=== PATIENT | female | born 1950 | race Caucasian/White ===

== ENCOUNTER → 2023-10-14 12:45 | Outpatient (REF) | payer MEDICARE, BC, SELFPAY | LOC: RAD 12:45 | PROVIDERS: ATTENDING PHYSICIAN Emergency Medicine; FAMILY PHYSICIAN Family Medicine | DX: S20.219A Contusion of unspecified front wall of thorax, initial encounter (principal); S43.401A Unspecified sprain of right shoulder joint, initial encounter | CPT/HCPCS: 71046; 71120; 73030 ==

== ENCOUNTER → 2024-02-25 17:50 | Outpatient (REF) | payer MEDICARE, BC, SELFPAY | LOC: MRI 3T 17:50 | PROVIDERS: ATTENDING PHYSICIAN Surgery Surgical Oncology; FAMILY PHYSICIAN Family Medicine | DX: R92.2 Inconclusive mammogram (principal); Z85.3 Personal history of malignant neoplasm of breast | CPT/HCPCS: 77049; A9585 ==

== ENCOUNTER 2024-08-14 15:39 | Inpatient (IN) | payer MEDICARE, BC, SELFPAY ==
[2024-08-14] VITALS (7 sets, daily range): BP systolic 133–159; BP diastolic 70–86; BMI 24.3
[2024-08-14 11:14] LABS: % Basophils 0.7 % (0-2); % Eosinophils 0.9 % (0-6); % Immature Granulocytes 0.2 % (0-0.5); % Lymphocytes 20.5 % (20.5-51.1); % Monocytes 13.2 % (1.7-9.3); % Neutrophils 64.5 % (42.2-75.2); Absolute Basophils 0.1 10^3/uL (0-0.2); Absolute Eosinophils 0.1 10^3/uL (0-0.7); Absolute Lymphocytes 1.7 10^3/uL (1.2-3.4); Absolute Monocytes 1.1 10^3/uL (0.1-0.6); Absolute Neutrophils 5.2 10^3/uL (1.4-6.5); Hematocrit 36.4 % (37.0-47.0); Hemoglobin 12.9 g/dL (12.0-16.0); Mean Corp Hgb Conc. 35.4 g/dL (33.0-37.0); Mean Corpuscular Hgb 31.5 pg (27.0-31.0); Nucleated Red Blood Cells % 0 %; Platelet Count 263 10^3/uL (130-400); Red Blood Cell Count 4.09 10^6/uL (4.20-5.40); Red Cell Dist. Width 12.2 % (11.5-14.5); White Blood Cell Count 8.1 10^3/uL (4.8-10.8)
[2024-08-14 11:47] LABS: Troponin I < 0.012 ng/ml
[2024-08-14 12:15] LABS: ALT (SGPT) 30 U/L (0-35); AST (SGOT) 40 U/L (14-36); Albumin 4.8 g/dl (3.5-5.0); Alkaline Phosphatase 93 U/L (38-126); Blood Urea Nitrogen 14 mg/dl (7-17); Calcium 9.6 mg/dl (8.4-10.2); Carbon Dioxide 27 mmol/L (22-30); Chloride 86 mmol/L (98-107); Glucose 105 mg/dl (70-99); Potassium 4.1 mmol/L (3.5-5.1); Sodium 125 mmol/L (135-145); Total Bilirubin 0.7 mg/dl (0.2-1.3); Total Protein 7.8 g/dl (6.3-8.2); eGFR > 60.00
--- NOTE | 2024-08-14 14:21 | ED.GENMED ---
History of Present Illness
General
Chief Complaint: Cardiac Symptoms
Source: patient
Exam Limitations: none
Time Seen by Provider: 08/14/24 14:09
Nursing documentation reviewed up to this point in time: agreed with
History of Present Illness
History of Present Illness:
73-year-old female presenting to the emergency department with concerns of feeling 'off' had some mild chest discomfort 2 days ago but none today some mild nausea. Also some palpitations. Denies any specific ongoing chest pain shortness of breath
fevers vomiting diarrhea.
Past History
Past History
ED Past Medical History: Other (Herniated disc in neck)
ED Past Surgical History: Tonsilectomy and Other (Breast biopsy,)
Social History
Tobacco: Non-smoker
Alcohol: Daily
Personal:
Living: with family
Employment: Employed
Review of Systems
Review of Systems
Allergies reviewed?: Yes
All Other Systems: ROS reviewed and negative except as documented in HPI and ROS
Phy Exam
Physical Exam
Physical Exam:
GENERAL: Alert , in no apparent distress
EYE: pupils equal and reactive
NECK: Supple, no significant adenopathy.
ENT: o/p clr, mmm.
CARDIAC: Regular rate and rhythm .
LUNGS: Clear breath sounds bilaterally, no acute respiratory distress, no wheezes/rales/rhonchi
ABDOMEN: Soft, without focal tenderness, no r/g, no cvat
NEUROLOGICAL: Alert and oriented, no focal neuro deficits
SKIN: Warm and dry, skin intact.
MUSCULOSKELETAL: No edema, well perfused.
PSYCH: Normal and appropriate interaction.
Course
Orders/Labs/Results
Orders:
Orders
08/14/24 10:32
Electrocardiogram (*1) Urgent
Reason for Study: Chest Pain
EKG- Treatment ONCE
08/14/24 10:50
Complete Blood Count/With Diff Urgent
Comprehensive Metabolic Panel Urgent
Troponin I Urgent
08/14/24 14:09
Chest [CR Chest - 2 Views ] Urgent
Comment:
Reason For Exam: cp
08/14/24 14:35
Osmolality, Random Urine Urgent
Serum Osmolality Urgent
Urine Sodium Urgent
08/14/24 14:47
Urinalysis Reflex To Culture Urgent
Abnormal Lab Results
08/14/24
10:50
RBC 4.09 L 10^6/uL
(4.20-5.40)
Hct 36.4 L %
(37.0-47.0)
MCH 31.5 H pg
(27.0-31.0)
Absolute Monos (auto) 1.1 H 10^3/uL
(0.1-0.6)
Monocytes % 13.2 H %
(1.7-9.3)
Sodium 125 L mmol/L
(135-145)
Chloride 86 L mmol/L
(98-107)
Glucose 105 H mg/dl
(70-99)
AST 40 H U/L
(14-36)
08/14/24 10:50
08/14/24 10:50
Vital Signs
Initial and Last Documented VS:
Initial Vital Signs
Temp Pulse Resp BP Pulse Ox
97.9 F 89 18 136/80 97
08/14/24 10:36 08/14/24 10:36 08/14/24 10:36 08/14/24 10:36 08/14/24 10:36
Last Documented Vital Signs
Temp Pulse Resp BP Pulse Ox
97.9 F 83 16 133/83 99
08/14/24 10:36 08/14/24 14:20 08/14/24 14:20 08/14/24 14:20 08/14/24 14:20
MDM/Problems Addressed
MDM/Problems Addressed:
73-year-old female presenting to the emergency department today with concerns of feeling 'off' had some discomfort to her chest denies specific pain which occurred yesterday currently asymptomatic. Vital signs normal on arrival labs were obtained
that showed low sodium level 125. Patient generally well-appearing EKG without emergent findings troponin negative. Chest x-ray without emergent findings. Considering low level of sodium typically relatively high level in the 140s plan to admit
for fluid restriction and monitoring as well as potential consultation.
*Critical Care Note
Total Time (30-74mins, 75-104mins- exclusive of procedures): Not Applicable
ED Attending Note
-
Portions of this chart may have been created with voice recognition software.� Occasional wrong word or��sound alike� substitutions may have occurred due to the inherent limitations of voice recognition software.
Discharge Plan
Departure
Patient Disposition: Admit
Date of Disposition: 08/14/24
Time of Disposition: 14:48
Admit to: Med/Surg
Admit to doctor: Russ
Presentation/result/management discussed w/ accepting MD/DO: Hospitalist
Patient with high blood pressure during this ER visit?: No
Condition: Good
Covid-19: Not Applicable
Discharge Problem:
Acute hyponatremia
Instructions: Hyponatremia
Prescriptions:
No Action
simvastatin 20 MG tablet
20 mg PO DAILY
lorazepam 1 MG tablet
1 mg PO Q4HPRN PRN (Reason: Anxiety) Qty: 10 0RF
Referrals:
Lilliana Chilel DO [Family Provider] -
Interventions
Interventions:
*Risk Screen - Suicide Last Done: 08/14/24 14:21
*General Assessment Last Done: 08/14/24 14:20
*Neglect/Abuse Screening Last Done: 08/14/24 14:21
*ED COVID-19 Vaccine History Last Done: 08/14/24 14:20
ED- Pulmonary Assessment Last Done: 08/14/24 14:20
ED- Cardiac Assessment Last Done: 08/14/24 14:20
Discharge Date and Time
Print Language: KINYARWANDA
--- NOTE | 2024-08-14 15:00 | HPS.HSE ---
Family Physician
-
Family Physician: Lilliana Chilel
Chief Complaint
-
'feeling off'
History of Present Illness
Ms. Rona Gonzalez is a 73 yo woman with hx HLD, breast CA (2013) presents to the ER complaining of 'feeling off'
Patient states she had right shoulder pain 2 days ago that has now resolved. This morning she did yoga and felt fine but then 'felt off' and came here. When asked if she felt dizzy she states no. She denies fatigue. She denies left-sided chest
pain. She reports a nervous feeling, maybe palpitations. Over the past two days she has had intermittent nausea, no vomiting. No fevers/chills. No cough/congestion. No abdominal pain. No LE swelling.
She states she drinks a lot of water. She doesn't know her medications, when asked if she takes hydrochlorothiazide she states that sounds familiar.
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
Medical History
Past Medical History
Past Medical History: Reports Other (HLD, breast CA (2013))
Past Surgical History: Reports Other
Social History
Tobacco: Non-smoker
Alcohol: Occasional
Family History
Family History: Not pertinent
Allergies / Home Medications
Allergies reflects when Allergies were last updated in [employer].
Home Medications with original date entered in [employer]
Allergy/Medication List:
Allergies
Allergy/AdvReac Type Severity Reaction Status Date / Time
levofloxacin [From Levaquin] Allergy Unknown Verified 10/19/10 00:22
Home Medications
lorazepam 1 mg tablet 1 mg PO Q4HPRN PRN Anxiety #10 tabs 10/19/10
simvastatin 20 mg tablet 20 mg PO DAILY 10/19/10
*awaiting med rec
Review of Systems
-
History Source: Patient
A 12 point ROS was completed and negative except as noted: Yes
Physical Exam
Vital Signs
Vital Signs
Temp Pulse Resp BP Pulse Ox
97.9 F 83 16 133/83 99
08/14/24 10:36 08/14/24 14:20 08/14/24 14:20 08/14/24 14:20 08/14/24 14:20
Physical Exam
General: No Apparent Distress
HEENT: PERRLA
Respiratory: Clear; No Wheezes
Cardiac: S1/S2 and Regular Rhythm
GI: Soft and Non Tender
Musculoskeletal: No Edema
Skin: Warm and Dry; No Rash
Neuro: AO x 3
Psych: Calm
Laboratory Results
-
08/14/24 10:50
08/14/24 10:50
Laboratory Results
Total Bilirubin 0.7 mg/dl (0.2-1.3) 08/14/24 10:50
AST 40 U/L (14-36) H 08/14/24 10:50
ALT 30 U/L (0-35) 08/14/24 10:50
Alkaline Phosphatase 93 U/L (38-126) 08/14/24 10:50
Troponin I < 0.012 ng/ml 08/14/24 10:50
Data Reviewed
-
Diagnostic Radiology: Report Reviewed by me
Lab Data: Labs Reviewed by me
Impression/Plan
-
Ms. Rona Gonzalez is a 73 yo woman with hx HLD, breast CA (2013) presents to the ER complaining of an unsettled feeling that is difficult for her to elaborate on. Na 125.
Triage VS: T 97.9, P 89, RR 18, BP 136/80, SpO2 97%
LABS: WBC 8.1, Hg 12.9, PLT 263, Na 125, K+ 4.1, Cl 86, CO2 27, BUN 14, Cr 0.8, Glucose 105, Ca 9.6, T. Bili 0.7, AST 40, ALT 30, Alk PHos 93, Trop < 0.012
EKG: NSR @ 77
CXR
IMPRESSION:
No acute cardiopulmonary process.
HYPONATREMIA
-patient reports drinking a lot of free water and that she may take HCTZ. awaiting urine studies. For now will fluid restrict.
-repeat sodium at 6PM
Palpitations
-unclear if this is what patient felt versus anxiety as she does not elaborate
-monitor on telemetry and trend Troponin
HLD
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
DVT PPx SCD
FULL CODE
[2024-08-14 16:03] LABS: Osmolality Serum 266 mOsm/kg (275-300)
[2024-08-14 16:08] LABS: Magnesium 1.6 mg/dl (1.6-2.3)
--- NOTE | 2024-08-14 18:00 | PTCARENOTE ---
Pt arrived from the ED at this time, Pt denying any chest discomfort, SR/ST on telemetry, HR 110s with ambulating in room, HR 80s-90s at rest, denies any dizziness. See shift assessment for further detail. Oriented pt to , call arrington, reporting
concerns, plan of care etc- pt verbalized understanding.
[2024-08-14 18:31] LABS: Sodium 125 mmol/L (135-145)
[2024-08-14 18:44] LABS: Troponin I 0.019 ng/ml
--- NOTE | 2024-08-14 18:45 | PTCARENOTE ---
Wesley Texted Dr. Berman results of Sodium blood test (125) and that med rec completed. Made her aware that pt was unable to provide urine sample yet for Sodium.
[2024-08-14 20:08] LABS: Urine Albumin Negative (Neg - Trace); Urine Bilirubin Negative (Negative); Urine Character Clear (Clear); Urine Color Yellow; Urine Glucose Negative (Negative); Urine Ketone 1+ (Negative); Urine Leukocyte 2+ (Negative); Urine Nitrite Negative (Negative); Urine Occult Blood Negative (Negative); Urine Urobilinogen Negative (Neg - 1+)
[2024-08-14 20:13] LABS: Osmolality Urine 414 mOsm/kg (300-900)
[2024-08-14 20:19] LABS: Urine Sodium 88 mmol/L (30-90); Urine Squamous Cell 0-2 /LPF (Few)
[2024-08-14 20:20] LABS: Urine Red Blood Cell 0-2 /HPF (0-2)
[2024-08-14] MEDS: CRESTOR 10 MG PO (20:42)
[2024-08-14] MEDS: MAG-TAB SR 84 MG PO (20:43)
[2024-08-14] MEDS: BENICAR 20 MG PO (20:43)
[2024-08-15 00:57] LABS: Troponin I < 0.012 ng/ml
[2024-08-15] MEDS: BenGay-Like 1 APPLIC TOPICAL ×2 (01:00→09:48)
[2024-08-15 03:50] VITALS: BP 140/69
[2024-08-15 08:36] LABS: Blood Urea Nitrogen 16 mg/dl (7-17); Carbon Dioxide 26 mmol/L (22-30); Chloride 89 mmol/L (98-107); Estimated Creatinine Clearance 70 ml/min; Glucose 98 mg/dl (70-99); Magnesium 1.7 mg/dl (1.6-2.3); Potassium 4.4 mmol/L (3.5-5.1); Sodium 127 mmol/L (135-145); eGFR > 60.00
[2024-08-15 08:48] VITALS: BP 132/71
--- NOTE | 2024-08-15 11:17 | W.PN.HOSP.TC ---
Today's Communication/Plan
-
OK for DC today
Assessment / Plan
Assessment / Plan
Ms. Rona Gonzalez is a 73 yo woman with hx HLD, breast CA (2013) presents to the ER complaining of an unsettled feeling that is difficult for her to elaborate on. Na 125.
CXR
IMPRESSION:
No acute cardiopulmonary process.
HYPONATREMIA
-patient reports drinking a lot of free water and she also takes HCTZ
-HCTZ stopped; fluid restriction, also holding KLYSTROM TUBE TESTER SSRI
-Na improved to 127 this AM. 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
she will get follow up labs on Saturday
Palpitations
-no events on telemetry; Troponin WNL
HLD
-KLYSTROM TUBE TESTER statin - awaiting med rec
DVT PPx SCD
FULL CODE
Anticipated Discharge: Today
Subjective/Interval History
-
Date of Service: August 15, 2024
she is feeling better and wants to go home
Objective Data
-
Labs:
Laboratory Results
08/15/24
07:36
Sodium 127 L
Potassium 4.4
Chloride 89 L
Carbon Dioxide 26
BUN 16
Creatinine 0.7
Glucose 98
Calcium 10.0
Vital Signs:
Vital Signs
Temp Pulse Resp BP Pulse Ox
98.4 F 73 18 132/71 98
08/15/24 08:48 08/15/24 08:48 08/15/24 08:48 08/15/24 08:48 08/15/24 09:45
I&O
08/14/24 08/15/24 08/16/24
06:59 06:59 06:59
Output Total 150 / 150
Balance -150 / -150
Review of Systems
-
History Source: Patient
All other systems: Reviewed and negative
Physical Exam
-
General: No Apparent Distress and Conversant
HEENT: PERRLA
Respiratory: Clear to Auscultation; Negative Wheezes
Cardiac: Regular Rhythm and S1/S2
GI: Soft and Nontender
Musculoskeletal: No Edema
Skin: Warm and Dry; Negative Rash
Neuro: AO x 3
Psych: Calm
Data Reviewed
-
Diagnostic Radiology: Report Reviewed by me
Labs: Labs Reviewed by me
--- NOTE | 2024-08-15 11:40 | W.DS.TRANS ---
DC Summary - Neuropsychology Division Chief
-
Discharge Instructions:
Discharge Diagnosis/Procedures Hyponatremia
Diet Restrict fluids to 48 oz
Additional Diets Restrict fluids to 40-48 oz until further
discussed with outpatient physician
Activity As tolerated
Driving Restrictions As prior to admission
Bathing Restrictions None
Blood Work BMP on Saturday08/17/24
Instructions:
Stand-Alone Forms:
Changes to Home Medications: Yes
Discharge Medications:
DC Medications w/original date entered in [employer]
anastrozole 1 mg tablet 1 mg PO DAILY 08/14/24
cholecalciferol (vitamin D3) 25 mcg (1,000 unit) tablet (Vitamin D3) 25 mcg PO QPM 08/14/24
coQ10 (ubiquinol) 100 mg capsule 100 mg PO QPM 08/14/24
escitalopram oxalate 10 mg tablet (Lexapro) 10 mg PO QPM 08/14/24
glucosamine sulfate 500 mg tablet (Glucosamine) 500 mg PO QPM 08/14/24
magnesium oxide 400 mg PO HS 08/14/24
montelukast 10 mg tablet (Singulair) 10 mg PO HS 08/14/24
olmesartan 20 mg tablet (Benicar) 20 mg PO QPM 08/14/24
rosuvastatin 10 mg tablet (Crestor) 10 mg PO QPM 08/14/24
therapeutic multivitamin 1 tab PO QPM 08/14/24
turmeric 400 mg capsule 400 mg PO QPM 08/14/24
Home Medication Changes
STOP HCTZ
HOLD LEXAPRO
Pending Results: No
[2024-08-15 12:09] VITALS: BP 132/70
--- NOTE | 2024-08-15 12:47 | CM ---
Discharge order noted.
CM made numerous attempts to met with the pt, pt was not in the room and per UC, pt was walking independently around the unit and she probably left.
D/C plan: home no needs.
--- NOTE | 2024-08-15 15:34 | W.DCSUMMARY ---
Discharge Summary
Discharge Data
Date of Admission: 08/14/24
Date of Discharge: 08/15/24
-
Pending Results: No
Hospital Course
Discharging Physician : Dr. Elle Berman
Disposition : Home
Primary care physician : Dr. Lilliana Chilel
Principal Discharge diagnosis : Hyponatremia
Hospital Course :
Ms. Rona Gonzalez is a 73 yo woman with hx HLD, breast CA (2013) presents to the ER complaining of 'feeling off,' reporting a nervous feeling. Triage vitals stable, labs significant for Na 125. CXR without acute process. She was admitted
overnight for treatment of Hyponatremia. Home med rec done showing patient is on HCTZ. Urine studies showed sodium 88, osmol 414. HCTZ was held, patient fluid restricted and Na improved to 127 the following morning. She feels back to normal.
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 Her HCTZ is stopped, she ist told to continue fluid restriction. Additionally, she is told to hold her
SSRI until labs show stability, but to resume if she started to feel withdrawal symptoms. She is given a script to get a BMP on Saturday08/17/24 and will follow closely with her PCP.
Time spent on discharge was 32 minutes.
Important imaging findings :
Procedure findings :
Discharge Plan
-
Patient Disposition: Home (Routine Discharge)
Discharge Diagnosis/Procedures: Hyponatremia
Diet: Restrict fluids to 48 oz
Additional Diets: Restrict fluids to 40-48 oz until further discussed with outpatient physician
Activity: As tolerated
Driving Restrictions: As prior to admission
Bathing Restrictions: None
Blood Work: BMP on Saturday08/17/24
Referrals:
Lilliana Chilel, DO [Family Provider] - in less than 1 week
Additional Discharge Medication Instructions: STOP HYDROCHLOROTHIAZIDE - this should be stopped indefinitely for low sodium
I recommend holding Lexapro until follow up labs on Saturday. If you feel that your mood becomes increasing labile off of this medication then it is OK to resume. Lexapro can likely be resumed once we ensure that your labs are WNL and Na stable over
130
Prescriptions:
Continued
anastrozole 1 mg Tablet
1 mg PO DAILY
glucosamine sulfate [Glucosamine] 500 mg Tablet
500 mg PO QPM
therapeutic multivitamin Tablet
1 tab PO QPM
olmesartan [Benicar] 20 mg Tablet
20 mg PO QPM
rosuvastatin [Crestor] 10 mg Tablet
10 mg PO QPM
cholecalciferol (vitamin D3) [Vitamin D3] 25 mcg (1,000 unit) Tablet
25 mcg PO QPM
coQ10 (ubiquinol) 100 mg Capsule
100 mg PO QPM
magnesium oxide 400 mg magnesium Tablet
400 mg PO HS
turmeric 400 mg Capsule
400 mg PO QPM
montelukast [Singulair] 10 mg Tablet
10 mg PO HS
Held
escitalopram oxalate [Lexapro] 10 mg Tablet
10 mg PO QPM
Hold Instructions: Resume on 08/18/24. Resume when OK'd by your PCP
Discontinued
hydrochlorothiazide 25 mg Tablet
25 mg PO QPM
Discharge Orders:
Discharge Patient (As Directed); Ordered 08/15/24
Ordered By: Elle Berman
Discharge Date and Time
Discharge Date/Time: 08/15/24 12:45
Print Language: DANISH
== END 2024-08-15 12:45 | disposition home or self-care (01) | DRG 641 ==
LOC: 4 EAST ACU 15:39
PROVIDERS: Emergency Medicine; Physician Assistant; ADMITTING PHYSICIAN Student in an Organized Health Care Education/Training Program; EMERGENCY PHYSICIAN Emergency Medicine; FAMILY PHYSICIAN Family Medicine
DX: E87.1 Hypo-osmolality and hyponatremia (principal); E78.5 Hyperlipidemia, unspecified; Z85.3 Personal history of malignant neoplasm of breast; Z88.8 Allergy status to other drugs, medicaments and biological substances
CPT/HCPCS: 71046; 80048; 80053; 81003; 81015; 83735; 83930; 83935; 84295; 84300; 84484; 85025; 87086; 93005; 99285

== ENCOUNTER → 2025-05-06 06:37 | Outpatient (REF) | payer MEDICARE, BC, SELFPAY | LOC: MRI 3T 06:37 | PROVIDERS: ATTENDING PHYSICIAN Surgery Surgical Oncology; FAMILY PHYSICIAN Family Medicine | DX: Z85.3 Personal history of malignant neoplasm of breast (principal); R92.2 Inconclusive mammogram | CPT/HCPCS: 77049; A9585 ==